=== PATIENT | female | born 1935 | race Caucasian/White ===

== ENCOUNTER 2016-08-10 17:31 | Emergency (ER) | payer MEDICARE, BC ==
[~2016-08-10] VITALS: Ht 157.5 cm; Wt 79.0 kg
[~2016-08-10 17:31] MED LIST: ASCO500C7 PO; ASPI-535; CALC-649; DONE5TAB7 PO; FOLI-49 PO; MAGN250T24; MULT-552 PO; MULT1TAB6; POTA20TA15; TEMA7.5C2; TRAM-40 PO; VALS1TAB10; VITA1TAB58 PO; [UNRECOGNIZED DRUG - CODE]; [UNRECOGNIZED DRUG - OTHER]
[2016-08-10 17:32] VITALS: Ht 157.5 cm; Wt 79.0 kg
--- NOTE | 2016-08-10 19:43 | ERD ---
ER Documentation Chief Complaint Date/Time DATE: 08/10/16 TIME: 19:40 Chief Complaint blood in stools x 2 days HPI Very pleasant 81-year-old female who presents to the emergency room complaining of bloody stools for 2 days. She states that she is occasionally having blood with stool that is occasionally filling the bowl. She denies any hematemesis, no melena. No prior history of GI bleed. She does not take anticoagulants. She denies any abdominal pain or discomfort. ROS All systems reviewed and are negative except as per history of present illness. Medications Home Meds Active Scripts Hydrocortisone Acetate (Anusol-Hc) 25 Mg Supp.rect, 1 SUPP [place] BID Y for HEMORROID PAIN/ITCHING, #12 SUPP.RECT Prov:MARY BROWN MD 08/10/16 Reported Medications Donepezil* (Donepezil*) 5 Mg Tablet, 5 MG PO DAILY, #30 TAB 11/05/15 Vitamin B Complex (B Complex) 1 Tab.sa Tablet.sa, 1 TAB.SA PO DAILY 11/05/15 Ascorbic Acid* (Vitamin C*) 500 Mg Capsule.sa, 500 MG PO DAILY, CAP 11/05/15 Multivitamins* (Once Daily*) 1 Tab Tablet, 1 TAB PO DAILY, TAB 11/05/15 Folic Acid* (Folic Acid*) 1 Mg Tablet, 1 MG PO DAILY, TAB 11/05/15 Tramadol Hcl* (Ultram*) 50 Mg Tablet, 50 MG PO Q6H Y for PAIN, TAB 11/05/15 Quinine Sulfate (Quinine Sulfate) 324 Mg Cap 05/23/10 Temazepam* (Restoril*) 7.5 Mg Capsule 05/23/10 Folic Acid/Mv,Fe,Other Min (Centrum Complete Multivit Tab) 1 Each Tablet 05/20/10 [lutea] No Conflict Check 05/20/10 Magnesium (Magnesium) 250 Mg Tablet 05/20/10 Calcium Carbonate (Calcium) 1 Tab Tablet 05/20/10 Potassium Chloride* (K-Dur*) 20 Meq Tab.prt.sr 05/20/10 Aspirin Ec (Aspir 81) 81 Mg Tablet.dr 05/20/10 Valsartan-Hydrochlorothiazide (Diovan HCT) 1 Tab Tablet 05/20/10 Allergies Allergies: Coded Allergies: Penicillins (Verified Allergy, Unknown, 11/05/15) PMhx/Soc History of Surgery: Yes (see PT notes) Anesthesia Reaction: No Hx Neurological Disorder: No Hx Respiratory Disorders: No Hx Cardiac Disorders: No Hx Psychiatric Problems: No Hx Miscellaneous Medical Probl: Yes (see PT notes) Hx Alcohol Use: Yes (1 GLASS WINE NIGHTLY) Hx Substance Use: No Hx Tobacco Use: No (QUIT 1995) FmHx Family History: No diabetes Physical Exam Vitals Vital Signs Date Time Temp Pulse Resp B/P Pulse Ox O2 Delivery O2 Flow Rate FiO2 08/10/16 17:32 98.8 94 20 105/61 99 Physical Exam General: Well developed, well nourished, no acute distress Head: Normocephalic, atraumatic. 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 Internal rectal exam is brown stool, no blood MSK: No edema, no unilateral swelling, 5/5 strength Neurologic: Alert and oriented, moving all extremities, normal speech, no focal weakness, no cerebellar signs Skin: No rash Psych: Normal mood Result Diagram: 08/10/16 1950 08/10/161949 Results 24 hrs Laboratory Tests Test 08/10/16 19:50 White Blood Count 5.810^3/ul Red Blood Count 3.6810^6/ul Hemoglobin 12.2g/dl Hematocrit 36.1% Mean Corpuscular Volume 98.1fl Mean Corpuscular Hemoglobin 33.2pg Mean Corpuscular Hemoglobin Concent 33.8g/dl Red Cell Distribution Width 12.8% Platelet Count 44891^3/UL Mean Platelet Volume 9.3fl Neutrophils % 55.5% Lymphocytes % 31.2% Monocytes % 11.0% Eosinophils % 1.7% Basophils % 0.3% Nucleated Red Blood Cells % 0.0/100WBC Neutrophils # 3.210^3/ul Lymphocytes # 1.810^3/ul Monocytes # 0.610^3/ul Eosinophils # 0.110^3/ul Basophils # 0.010^3/ul Nucleated Red Blood Cells # 0.010^3/ul Prothrombin Time 12.7Sec Prothrombin Time Ratio 1.0 INR International Normalized Ratio 0.95 Activated Partial Thromboplast Time 28.6Sec Sodium Level 136mmol/L Potassium Level 3.9mmol/L Chloride Level 102mmol/L Carbon Dioxide Level 30mmol/L Anion Gap 8 Blood Urea Nitrogen 25mg/dl Creatinine 0.91mg/dl Glucose Level 90mg/dl Calcium Level 9.3mg/dl Procedures/MDM LAB INTERPRETATION: [] MEDICAL DECISION MAKING: The patient presents with painless rectal bleeding. This appears to be secondary to an external hemorrhoid that has stigmata of recent bleeding. However, consider possible diverticulosis. Much lower clinical concern for AV malformation, malignancy, upper GI bleed. Given the patient's age I believe laboratory testing would be appropriate to rule out thrombocytopenia or coagulopathy. The patient states that she feels strongly about not staying in the hospital. We discussed the risks, benefits, alternatives. Given this appears to be secondary to hemorrhoidal hemorrhage it is unlikely to cause life-threatening bleeding therefore outpatient management may be appropriate. The patient has capacity. She has close primary care follow-up. ER COURSE: [] I kept the patient and/or family informed of laboratory and diagnostic imaging results throughout the emergency room course. DISPOSITION PLAN: [] CONSULTATION: [] Departure Diagnosis: Primary Impression: Rectal hemorrhage Additional Impression: External bleeding hemorrhoids Condition: Stable MARY BROWN MD August 10, 2016 19:43
[2016-08-10 19:57] LABS: ADD SCAN DIFF NO
[2016-08-10 19:59] LABS: BASOPHILS % 0.3 % (0.0-2.0); EOSINOPHILS # 0.1 10^3/ul (0.0-0.5); EOSINOPHILS % 1.7 % (0.0-7.0); HEMATOCRIT 36.1 % (37.0-47.0); HEMOGLOBIN 12.2 g/dl (12.0-16.0); LYMPHOCYTES # 1.8 10^3/ul (0.8-2.9); LYMPHOCYTES % 31.2 % (15.0-51.0); MEAN CORPUSCULAR HEMOGLOBIN 33.2 pg (29.0-33.0); MEAN CORPUSCULAR HGB CONC 33.8 g/dl (32.0-37.0); MEAN CORPUSCULAR VOLUME 98.1 fl (82.0-101.0); MEAN PLATELET VOLUME 9.3 fl (7.4-10.4); MONOCYTE # 0.6 10^3/ul (0.3-0.9); NEUTROPHIL # 3.2 10^3/ul (1.6-7.5); NEUTROPHILS % 55.5 % (39.0-77.0); PLATELET COUNT 145 10^3/UL (140-415); RED BLOOD COUNT 3.68 10^6/ul (4.20-5.40); RED CELL DISTRIBUTION WIDTH 12.8 % (11.5-14.5); WHITE BLOOD COUNT 5.8 10^3/ul (4.8-10.8)
[2016-08-10 20:07] LABS: INR 0.95; PROTIME 12.7 Sec (12.2-14.2)
[2016-08-10 20:08] LABS: PARTIAL THROMBOPLASTIN TIME 28.6 Sec (25.0-35.0)
[2016-08-10 20:10] LABS: CALCIUM 9.3 mg/dl (8.4-10.2); CREATININE 0.91 mg/dl (0.44-1.00); POTASSIUM 3.9 mmol/L (3.5-5.1)
[2016-08-10] MEDS ORDERED: HYDR25SU23 PR (20:34)
[2016-08-10 21:04] VITALS: BP 130/82; PULSE 76; RESP 16
== END 2016-08-10 21:17 | disposition home or self-care (01) ==
LOC: E/R 17:31
DX: K62.5 Hemorrhage of anus and rectum (principal); K64.5 Perianal venous thrombosis; R40.2142 Coma scale, eyes open, spontaneous, at arrival to emergency department; R40.2252 Coma scale, best verbal response, oriented, at arrival to emergency department; R40.2362 Coma scale, best motor response, obeys commands, at arrival to emergency department; Z79.82 Long term (current) use of aspirin; Z87.891 Personal history of nicotine dependence
CPT/HCPCS: 36415; 80048; 85025; 85610; 85730; 99284

== ENCOUNTER 2017-03-26 19:45 | Emergency (ER) | END 2017-03-27 06:02 | disposition home or self-care (01) ==

== ENCOUNTER 2017-12-08 12:08 | Day surgery (SDC) | END 2017-12-08 18:20 | disposition home or self-care (01) ==